=== PATIENT | male | born 1990 | race Caucasian/White ===

== ENCOUNTER 2017-05-23 22:45 | Emergency (ER) | payer OTHER ==
[~2017-05-23] VITALS: Ht 170.2 cm; Wt 63.5 kg
[~2017-05-23 22:45] MED LIST: BLEPH-105 ML OP; CORTISPORIN OTI10 ML OTIC; NORCO 5-325 TA1 EACH PO; PHENERGAN-CODE120 ML PO
[2017-05-23 23:26] LABS: AMP/METHAMP Negative (Negative); BARBITURATES Negative (Negative); BENZODIAZEPINES Negative (Negative); COCAINE Negative (Negative); METHADONE Negative (Negative); OPIATES Negative (Negative); PCP Negative (Negative)
[2017-05-23 23:32] LABS: HEMATOCRIT 41.9 % (42.0-52.0); MCH 30.5 pg (26.0-34.0); MCHC 33.4 g/dL (28.0-37.0); MCV 91.2 fL (80.0-100.0); RBC 4.6 mil/uL (4.50-6.00); RDW 13.3 % (10.5-14.5); WBC 9.1 thou/uL (4.0-11.0)
[2017-05-23 23:37] LABS: CALCIUM 8.8 mg/dL (8.5-10.1); CREATININE 0.8 mg/dL (0.7-1.3)
[2017-05-24 14:37] VITALS: BP 139/64
[2017-10-28] MEDS ORDERED: NEURONTIN600 MG PO (00:36)
[2017-10-28] MEDS ORDERED: AMBIEN 5 MG TABL5 M1 PO (00:36)
[2017-10-28] MEDS ORDERED: DEPAKOTE500 MG PO (00:37)
== END 2017-05-24 14:42 | disposition short-term general hospital (02) ==
LOC: ER 22:45
PROVIDERS: Emergency Medicine
DX: R45.851 Suicidal ideations (principal); F19.10 Other psychoactive substance abuse, uncomplicated; J45.909 Unspecified asthma, uncomplicated; F17.210 Nicotine dependence, cigarettes, uncomplicated; Z88.1 Allergy status to other antibiotic agents; Z88.0 Allergy status to penicillin